=== PATIENT | male | born 1990 | race Caucasian/White ===

== ENCOUNTER 2016-04-19 10:08 | Emergency (ER) | payer MEDICAID, OTHER ==
[2016-04-19 10:37] VITALS: BP 133/76; PULSE 80; RESP 16; TEMP 99.1; O2SAT 96
--- NOTE | 2016-04-19 10:46 | UCPHY ---
H & P Patient Type: Established HPI/ROS: This patient has a cough that is worse in the morning then in the afternoon. This is day 3 of his illness. He has associated myalgias primarily in his back muscles of moderate intensity. He describes associated yellow sputum. He notes no exacerbating or alleviating factors. He does have a mild sore throat associated this that he attributes to the coughing rather than a primary sore throat. ROS: No other constitutional symptoms. HEENT: He has no facial pain. No ear pain. To tolerating good p.o. intake. Pulmonary: No pleuritic pain or respiratory distress. Cardiovascular: No complaints GI: No vomiting. 7 point ROS is otherwise negative. Past Medical/Surgical History: Otherwise healthy Smoking Status: Current some day smoker Physical Exam: Physical Exam Vital signs are normal. General: No acute distress HEENT: Nose: Clear discharge bilaterally. No sinus tenderness to percussion. Ears: External canals and tympanic membranes are clear with no erythema or abnormal findings bilaterally. Oropharynx: No erythema or exudates. No dysphonia. No drooling or stridor. Eyes: Pupils equal and react to light. Extraocular motions are intact. Lungs: Clear to auscultation bilaterally with exception of mild wheeze when he coughs. No rales or rhonchi No respiratory distress. Cardiac: Regular rate and rhythm with no murmur gallop or rub Skin: No rash or pallor. Neuro: Alert with no focal deficits noted. Initial differential diagnosis: Influenza, viral bronchitis, URI with cough Constitutional: Initial Vital Signs Temperature (C) 37.3 C 04/19/16 10:35 Heart Rate 80 04/19/16 10:35 Respiratory Rate 16 04/19/16 10:35 Blood Pressure 133/76 H 04/19/16 10:35 O2 Sat (%) 96 04/19/16 10:35 O2 Delivery Mode Room Air Allergies/Adverse Reactions: [facility] Allergy (Verified 04/19/16 10:38) Home Medications: Medication Instructions Recorded Loratadine/Pseudoephedrine 1 each PO 11/10/12 [Claritin-D 12 Hour Tablet] Omeprazole 20 mg PO 11/10/12 Albuterol Hfa Anes Only [Proair 2 puffs IH Q4 PRN #1 mdi 04/19/16 Hfa Icu (*)] Fluticasone Nasal 04/19/16 Oseltamivir Phosphate [Tamiflu 75 75 mg PO BID #10 cap 04/19/16 mg (*)] MDM/Departure - MDM Diagnostics: Rapid influenza is positive for influenza A ED Course/Re-evaluation: I counseled the patient regarding influenza. The patient appears clinically well here without findings for sepsis or other concerning findings. No clinical evidence of lower respiratory infection - Depart Disposition: Home, Routine, Self-Care Clinical Impression: Influenza A Condition: Good Instructions: Influenza (ED) Additional Instructions: Diagnosis: Influenza A Plan: Humidifier Albuterol inhaler if needed for cough associated with her influenza Tamiflu may shorten the duration and intensity of illness. Consider taking that medication No work or being around many people until her fever has resolved more than 24 hours and feel improved. Return for any significant worsening despite the treatment plan Her symptoms should improve over the next 3-5 days. Stand Alone Forms: Work Excuse Referrals: NONE *PRIMARY CARE P,. [Primary Care Provider] - As per Instructions - PQRS PQRS Measurement: NA
== END 2016-04-19 11:10 | disposition home or self-care (01) ==
LOC: CED 10:08
DX: J10.1 Influenza due to other identified influenza virus with other respiratory manifestations (principal)
CPT/HCPCS: 87400-PO; 99214-PO; G0463-PO